=== PATIENT | female | born 1990 | race American Indian/Alaskan Native ===

== ENCOUNTER 2017-02-12 15:02 | Emergency (ER) | payer MEDICAID ==
[2017-02-12 16:06] VITALS: BP 97/63
[2017-02-12] MEDS ORDERED: TYLENOL PO ONE (16:06)
== END 2017-02-13 02:11 | disposition left against medical advice (07) ==
LOC: ED 15:02
DX: J02.9 Acute pharyngitis, unspecified (principal); R05 Cough; R19.7 Diarrhea, unspecified; F17.200 Nicotine dependence, unspecified, uncomplicated; F12.90 Cannabis use, unspecified, uncomplicated; Z88.2 Allergy status to sulfonamides; Z88.1 Allergy status to other antibiotic agents; Z53.21 Procedure and treatment not carried out due to patient leaving prior to being seen by health care provider